=== PATIENT | male | born 1990 | race Caucasian/White ===

== ENCOUNTER 2018-12-23 11:03 | Outpatient (CLI) | payer MEDICAID, SELFPAY ==
--- NOTE | 2018-12-23 11:04 | DI.RAD_ITS ---
SYMPTOMS/DIAGNOSIS: RT HAND PAIN IN MCP JOINTS OF IF/MF, PIP OF MF RIGHT HAND: Three views. Comparison is 03/18/12. No bone or joint abnormality is identified. The soft tissues are unremarkable. IMPRESSION: Negative right hand.
== END 2018-12-23 11:23 ==
PROVIDERS: PCP Family Medicine; Visit Provider Physician Assistant
DX: M79.641 Pain in right hand (principal)
CPT/HCPCS: 73130

== ENCOUNTER 2019-01-20 09:04 | Outpatient (CLI) | payer MEDICAID, SELFPAY ==
[2019-01-20 09:58] LABS: HCT 48.3 % (40.0-50.0); HGB 16.5 g/dL (13.5-17.5); Mean Corp. HGB Concentration 34.2 g/dL (32.0-36.0); Mean Corpuscular Hemoglobin 29.6 pg (27.0-33.0); Mean Corpuscular Volume 86.6 fL (80-95); Mean Platelet Volume 10.9 fL (8.0-11.0); Platelet Count 194 x1000/uL (130-400); RBC 5.58 m/cumm (4.50-6.00); RBC Distribution Width 13.3 % (11.8-14.1)
[2019-01-20 10:14] LABS: C-Reactive Protein 0.14 mg/dL (0.0-0.3)
[2019-01-20 10:51] LABS: ESR 4 MM/HR (0-15)
[2019-01-21 08:45] LABS: Rheumatoid Factor <8 IU/mL (<12.5)
[2019-01-21 13:48] LABS: ANA Interpretation Negative (NEGAT)
[2019-01-23 10:39] LABS: HLA-B27 Result Negative
== END 2019-01-20 09:24 ==
PROVIDERS: Physician Assistant; PCP Family Medicine; Visit Provider Orthopaedic Surgery
DX: M79.641 Pain in right hand (principal)
CPT/HCPCS: 36415; 85027; 85652; 86812; 86038; 86140; 86431

== ENCOUNTER 2019-01-28 12:00 | Day surgery (SDC) | payer MEDICAID, SELFPAY ==
[2019-01-28 12:42] VITALS: BP 144/69; PULSE 75; RESP 16; TEMP 37.2; O2SAT 98
[2019-01-28] MEDS: Lidocaine 1% Multi-Dose 50 ML VIAL (14:33)
--- NOTE | 2019-01-28 14:50 | SOFT_PTH ---
PATIENT: Rohan Ruff LOC: [facility] U#:[id number] AGE/SX: 28/M ROOM: RE01/28/[address]: Isidoro Johnson MD : 1990 BED: DIS: 01/28/2019 SPEC #: [id number] RECD: 01/29/19 12:07 STATUS: REYNA SHAFFER #: [id number] LYUBOV: 01/28/19 14:[address]: Isidoro Johnson DEPT: Surgical Specimen RECD BY: Marisela Dumont ENTERED: 01/29/19 12:08 SP TYPE: SOFT OTHR DR: Jules Roldan MD Tissues: 1 - SOFT TISSUE-CYST(NOT LIPOMA) Procedures: GROSS AND MICRO LEVEL 4 Comments: [id number]
--- NOTE | 2019-01-28 15:08 | PDOC.DSDIS_ITS ---
Discharge Plan Disposition Patient Disposition: HOME Condition: Good Discharge Details Reason For Visit: excision of mass dorsum R hand Attending Provider: Isidoro Johnson Primary Care Provider: Jules Roldan Home Meds and New Rx's Prescriptions: Continued cyclobenzaprine 5 mg tablet 5 - 10 mg PO TID PRN (Reason: muscle spasm) Qty: 60 RF: 0 prednisone 5 mg tablet 5 mg PO BID Qty: 30 RF: 0 ibuprofen 600 mg Tablet 600 mg PRNRF: 0 acetaminophen [Tylenol] 325 MG tablet 650 mg PO Q4H PRN PRNQty: 30 RF: 0 Discharge Instructions Additional Instructions: Keep dressings dry and intact for 72 hours. After 72 hours, may remove dressings to shower or bathe. Can leave incision uncovered when it is dry and sealed. Use R hand as much as your discomfort allows. Follow up with in 10-14 days. Take tylenol or ibuprofen for pain. 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
--- NOTE | 2019-01-29 09:28 | ROE_ITS ---
REPORT OF OPERATIVE PROCEDURE DATE OF PROCEDURE January 28, 2019 PREOPERATIVE DIAGNOSIS Mass dorsum right hand, probable ganglion cyst. 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 PROCEDURE Excisional biopsy mass dorsum right hand. ANESTHESIA Local infiltration, 2% Xylocaine solution and 0.5% Marcaine with epinephrine solution. SURGEON Isidoro Johnson M.D. INDICATIONS This is a 28-year-old white male who noticed a mass on the dorsum of his right hand approximately fiv e years ago. The mass has been slowly enlarging over the last five years. It is located over the exte nsor tendon to the little finger over the fifth metacarpal. It certainly appears to be superficial. I t has the typical appearance of a ganglion cyst and it is probably 2 centimeters in diameter. Excisi onal biopsy was recommended to obtain an accurate diagnosis. The risks and complications of the proce dure were explained to the patient in detail preoperatively. DESCRIPTION OF PROCEDURE The patient was taken to the Operating Room on 01/28/2019. He was placed supine on the operating tabl e. The right hand, wrist and distal forearm were prepped and draped free in the usual sterile fashio n. I infiltrated proximal to the mass and circumferentially around the mass. I infiltrated the skin proximal to the mass and circumferentially around the mass with 2% Xylocaine solution. I then made a longitudinal incision paralleling the fifth metacarpal shaft beginning proximal and distal to the mas s. The incision was carried down through the skin and subcu. As the skin edges were , it bec law obvious that this was no a ganglion cyst. It had a yellow color to it consistent with xanthoma. I proceeded to circumferentially dissect around the mass. It was well encapsulated. It was adherent to the synovium around the extensor tendons to the little finger. I sharply dissected the mass off the little finger extensor tendons and delivered the mass in one piece. [facility] Residual synovial tissue over the extensor tendons of the little finger was then removed with a rongeur. Hemostasis was obtained with electrocautery. The wound was irrigated with saline solution and the wound margins were then infiltrated with 0.5% Marcaine with epinephrine solution. The skin ed ges were approximated with horizontal mattress sutures of #4-0 Nylon suture material. The wound was dressed with Xeroform gauze, sterile gauze, 4 x 4s, half of an ABD Pad, and wrapped with 4-inch Kerli x bandage. I then wrapped it with a 3-inch Layton bandage for a light pressure dressing. The patient brandon erated the procedure well. He was discharged from the Day Surgery unit in good condition. The patient was given instructions to elevate his hand above heart levels as much as possible overnig ht tonight. He is to keep the dressings dry and intact for 72 hours. After 72 hours, he may remove the dressings, shower and get the incision wet. He can leave the incision uncovered when it is dry and sealed. He may use his right hand as much as his discomfort allows. He will take Tylenol or ibuprofen for rubin n. He will followup with Dr. Johnson in 10 to 14 days.
== END 2019-01-28 15:27 | disposition home or self-care (01) ==
PROVIDERS: PCP Family Medicine; Visit Provider Orthopaedic Surgery
PROC: (CPT 26160; principal; 2019-01-28 14:00)
DX: D17.39 Benign lipomatous neoplasm of skin and subcutaneous tissue of other sites (principal); M79.641 Pain in right hand; R22.31 Localized swelling, mass and lump, right upper limb
CPT/HCPCS: 26160; 88305; L3908

== ENCOUNTER 2024-07-28 18:40 | Outpatient (REF) | payer BC, SELFPAY ==
[2024-07-28 21:32] LABS: HCT 51.2 % (40.0-50.0); HGB 17.7 g/dL (13.5-17.5); MCH 29.7 pg (27.0-33.0); MCHC 34.6 % (32.0-36.0); MCV 86 fL (80-95); MPV 10.9 fL (8.0-11.0); Platelet Count 261 10^3/uL (130-400); RBC 5.96 10^6/uL (4.36-5.78); RDW 11.9 % (11.8-14.1); RDW-SD 37.2 fL; WBC 8.28 10^3/uL (4.4-10.8)
[2024-07-28 22:53] LABS: ALT 60 U/L (16-63); AST 27 U/L (15-37); Albumin 4.5 g/dL (3.4-5.0); Alkaline Phosphatase 84 U/L (46-116); Anion Gap 9.4 mmol/L (3-11); BUN 8 mg/dL (7-18); Bilirubin, Total 0.36 mg/dL (0.2-1.0); CO2 29.6 mmol/L (21.0-32.0); CREATININE 0.7 mg/dL (0.70-1.30); Calcium 9.8 mg/dL (8.5-10.1); Calculated LDL 130 mg/dL (<100); Chloride 107 mmol/L (98-107); Cholesterol 186 mg/dL (<200); Estimated GFR 123.23 (mL/min/1.73m2); Glucose 92 mg/dL (74-106); HDL Cholesterol 35 mg/dL (40-60); Potassium 4.5 mmol/L (3.5-5.1); Sodium 146 mmol/L (136-145); TSH (W/Ref FT4) 1.66 uIU/mL (0.36-3.74); Total Protein 7.6 g/dL (6.4-8.2); Triglyceride 107 mg/dL (<150)
== END 2024-07-28 18:41 | disposition home or self-care (01) ==
LOC: LBN 18:40
PROVIDERS: PCP Nurse Practitioner Family; Visit Provider Nurse Practitioner Family
DX: Z13.220 Encounter for screening for lipoid disorders (principal); R53.83 Other fatigue; R51.9 Headache, unspecified; R06.83 Snoring; Z76.89 Persons encountering health services in other specified circumstances
CPT/HCPCS: 80053; 80061; 85027; 84443

== ENCOUNTER → 2025-08-13 03:35 | Outpatient (CLI) | payer BC, SELFPAY ==
--- NOTE | 2025-08-13 08:24 | DI.RAD_ITS ---
Exam(s) XR LUMBAR SPINE COMPLETE EXAM: XR LUMBAR SPINE COMPLETE CLINICAL HISTORY: persistent LOW BACK PAIN, M54.50. TECHNIQUE: 2D digital imaging was performed. COMPARISON: No exams were available for comparison FINDINGS: Five views No evidence of fracture, listhesis, nor pars defects. There is mild narrowing of the L3-4 disc space. All other disc spaces exhibit normal height.. Bone density normal. No osseous lesions. No obvious facet arthropathy. Sacroiliac joints appear unremarkable. Is no scoliosis. IMPRESSION: Mild narrowing of the L3-4 disc space. DATA REPOSITORY: RADIATION DOSE DELIVERED:
== END ==
LOC: DI 03:35
PROVIDERS: PCP Nurse Practitioner Family; Visit Provider Nurse Practitioner Family
DX: M51.360 Other intervertebral disc degeneration, lumbar region with discogenic back pain only (principal)
CPT/HCPCS: 72110